=== PATIENT | female | born 2000 | race Asian ===

== ENCOUNTER 2021-10-12 22:59 | Emergency (ER) | payer MEDICAID ==
[~2021-10-12] VITALS: Ht 165.1 cm; Wt 81.8 kg
[2021-10-12 23:17] VITALS: BP 143/81
[2021-10-13] MEDS ORDERED: ALBUTEROL SULFATE HFA 90 MCG/PUFF 8 GM INHALER IH ONE
== END 2021-10-13 00:24 | disposition home or self-care (01) ==
LOC: EMS 23:00
DX: J45.909 Unspecified asthma, uncomplicated (principal); Z76.0 Encounter for issue of repeat prescription
CPT/HCPCS: 99283; J3535